=== PATIENT | male | born 1970 | race American Indian/Alaskan Native ===

== ENCOUNTER 2019-12-20 20:03 | Emergency (ER) | payer SELFPAY ==
[2019-12-20 20:41] VITALS: BP 122/88
--- NOTE | 2019-12-20 21:32 | XRay Report ---
LUMBAR SPINE 3 VIEWS INDICATION / CLINICAL INFORMATION: lower back pain COMPARISON: None available. FINDINGS: BONES / JOINT(S): No acute fracture or subluxation. Mild degenerative disc disease scattered diffusel y. SOFT TISSUES: No significant abnormality. ADDITIONAL FINDINGS: None. Signer Name: Paco Alonzo MD Signed: 12/20/2019 9:27 PM Workstation Name: [id number]
[2019-12-20] MEDS ORDERED: IBUPROFEN 600 MG TAB PO ONE (22:21)
[2019-12-20] MEDS ORDERED: HYDROcodone/ACETAMINOPHEN 7.5-325MG TAB PO ONE (22:21)
[2019-12-20] MEDS ORDERED: ONDANSETRON 4 MG ODT TAB PO ONE (22:21)
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
== END 2019-12-20 23:14 | disposition home or self-care (01) ==
LOC: ED 20:03
DX: M62.830 Muscle spasm of back (principal); V89.2XXA Person injured in unspecified motor-vehicle accident, traffic, initial encounter; Y93.89 Activity, other specified; Y92.410 Unspecified street and highway as the place of occurrence of the external cause; Y99.8 Other external cause status
CPT/HCPCS: 72100; 99283; Q0162

== ENCOUNTER 2021-10-01 22:27 | Inpatient (IN) | payer SELFPAY ==
[2021-10-01] MEDS ORDERED: levETIRAcetam 1000 MG/NS 0.75% 1,000 MG/100 ML BAG IV ONE (22:54)
[2021-10-01] MEDS ORDERED: SODIUM CHLORIDE 0.9% 1000 ML 1,000 ML IV ONE (22:54)
[2021-10-01] MEDS ORDERED: LORazepam 2 MG/ML VIAL ONE (23:09)
[2021-10-01] MEDS ORDERED: LORazepam 2 MG/ML VIAL IV ONE ×2 (23:14→23:47)
[2021-10-01 23:24] LABS: Mean Corpuscular HGB Conc 31 % (32-34); Mean Corpuscular Volume 104 fl (84-94); Platelet Count 243 K/mm3 (140-440); Red Blood Count 5.28 M/mm3 (3.65-5.03); Red Cell Distribution Width 13.6 % (13.2-15.2)
[2021-10-01 23:40] LABS: Hematocrit 55.1 % (35.5-45.6); Hemoglobin 16.9 gm/dl (11.8-15.2)
[2021-10-01] MEDS ORDERED: MIDAZOLAM 2 MG/2 ML INJ IV PRN (23:45)
[2021-10-01] MEDS ORDERED: MIDAZOLAM/NS Drip 100mg/100ml 100 MG/100 ML BAG IV SCH (23:45)
[2021-10-01 23:49] LABS: Bilirubin,Urine NEG (Negative); Blood,Urine MOD (Negative); Color,Urine Straw (Yellow); Urobilinogen,Urine < 2.0 mg/dL (<2.0)
[2021-10-01 23:52] LABS: Albumin 5.2 g/dL (3.9-5); Calcium 10.7 mg/dL (8.4-10.2)
[2021-10-01 23:57] LABS: Amphetamine Screen,Urine PRESUMPTIVE NEGATIVE; Benzodiazepines Screen,Urine PRESUMPTIVE NEGATIVE; Cannabinoid Screen,Urine PRESUMPTIVE NEGATIVE; Cocaine Screen,Urine PRESUMPTIVE NEGATIVE; Methadone Screen,Urine PRESUMPTIVE NEGATIVE; Opiate Screen,Urine PRESUMPTIVE NEGATIVE
[2021-10-02] MEDS ORDERED: SODIUM CHLORIDE 0.9% 1000 ML 1,000 ML IV ONE ×2 (00:28→03:38)
[2021-10-02 00:45] LABS: ABG HCO3 13.3 mmol/L (20.0-26.0); ABG Methemoglobin 0.7 % (0.0-1.5); ABG PCO2 39.5 mm Hg; ABG PO2 93.5 mm Hg (80.0-90.0)
[2021-10-02 00:51] LABS: ABG PH 7.145 pH Units (7.350-7.450)
--- NOTE | 2021-10-02 00:51 | XRay Report ---
CHEST 1 VIEW 10/01/2021 11:00 PM INDICATION / CLINICAL INFORMATION: Dyspnea. COMPARISON: None available. FINDINGS: SUPPORT DEVICES: None. HEART / MEDIASTINUM: No significant abnormality. LUNGS / PLEURA: No significant pulmonary abnormality. No significant pleural effusion. No pneumothora x. ADDITIONAL FINDINGS: No significant additional findings. IMPRESSION: 1. No acute abnormality of the chest. Signer Name: Dewey Boyle MD Signed: 10/02/2021 12:46 AM Workstation Name: [id number]
--- NOTE | 2021-10-02 00:55 | Cat Scan Report ---
CT HEAD WITHOUT CONTRAST INDICATION / CLINICAL INFORMATION: Seizure. TECHNIQUE: All CT scans at this location are performed using CT dose reduction for ALARA by means of automated exposure control. COMPARISON: None available. FINDINGS: BRAIN PARENCHYMA: No acute intracranial hemorrhage. No evidence of recent infarct. No mass effect or midline shift. There is greater than expected generalized atrophy for a patient of this age. VENTRICULAR SYSTEM/EXTRA-AXIAL SPACES: Ventricles are normal for age. No extra-axial fluid collection . ORBITS: Normal as visualized. SKELETAL SYSTEM/SOFT TISSUES: Normal bones and soft tissues. PARANASAL SINUSES/MASTOID AIR CELLS: No significant abnormality. ADDITIONAL FINDINGS: None. IMPRESSION: 1. No acute intracranial abnormality. Signer Name: Dewey Boyle MD Signed: 10/02/2021 12:51 AM Workstation Name: [id number]
[2021-10-02] MEDS ORDERED: INSULIN REGULAR, HUMAN 100 UNITS in SODIUM CHLORIDE 0.9% 99 ML IV SCH ×2 (01:00→03:00)
[2021-10-02 01:04] LABS: Calcium 9.4 mg/dL (8.4-10.2)
[2021-10-02 01:23] LABS: Anisocytosis RARE; Total Cells Counted 100
--- NOTE | 2021-10-02 01:32 | Emergency Department Report ---
ED Altered Mental Status HPI - General Chief Complaint: Seizure Stated Complaint: SEIZURE PUI?: No Time Seen by Provider: 10/01/21 22:54 Source: family, EMS Mode of arrival: Stretcher Limitations: No Limitations - History of Present Illness Initial Comments: 51 years old with DM non compliant lately brought in be AMS for seizure new onset at home, had 3 more seizure while on the way here given versed arrived her posst ictal with repose to painful stimuli no falls no head injury Had seizure at home witnessed by family. Had 3 seizures witnessed by EMS and given Ativan 2mg IV. Seizure noted upon arrival to ED. - Related Data Previous Rx's Medication Instructions Recorded Last Taken Type Ibuprofen [Motrin] 800 mg PO Q8HR PRN #30 tablet 12/20/19 Unknown Rx methOCARBAMOL [Robaxin TAB] 750 mg PO Q8H PRN #24 tablet 12/20/19 Unknown Rx Allergies Allergy/AdvReac Type Severity Reaction Status Date / Time No Known Allergies Allergy Verified 10/01/21 23:13 ED Review of Systems ROS: Stated complaint: SEIZURE Other details as noted in HPI Comment: Unobtainable due to pts medical conditions ED Past Medical Hx - Past Medical History Previous Medical History?: Yes Hx Diabetes: Yes - Surgical History Past Surgical History?: No - Social History Smoking Status: Unknown if ever smoked - Medications Home Medications: Home Medications Medication Instructions Recorded Confirmed Last Taken Type Ibuprofen [Motrin] 800 mg PO Q8HR PRN #30 tablet 12/20/19 Unknown Rx methOCARBAMOL [Robaxin TAB] 750 mg PO Q8H PRN #24 tablet 12/20/19 Unknown Rx ED Physical Exam - General Limitations: No Limitations General appearance: lethargic - Head Head exam: Present: atraumatic, normocephalic - Eye Eye exam: Present: normal appearance - ENT ENT exam: Present: mucous membranes moist - Neck Neck exam: Present: normal inspection - Respiratory Respiratory exam: Present: normal lung sounds bilaterally. Absent: respiratory distress - Cardiovascular Cardiovascular Exam: Present: regular rate, tachycardia. Absent: systolic murmur, diastolic murmur, rubs, gallop - GI/Abdominal GI/Abdominal exam: Present: soft, normal bowel sounds - Rectal Rectal exam: Present: deferred - Extremities Exam Extremities exam: Present: normal inspection - Back Exam Back exam: Present: normal inspection - Expanded Neurological Exam Expanded Neurological exam: Present: innattentive Best Eye Response (Svitlana): (2) open to pain Best Motor Response (Orange): (5) localizes to pain Best Verbal Response (Orange): (1) no verbal response Svitlana Total: 8 - Skin Skin exam: Present: warm, dry, intact, normal color. Absent: rash ED Course Vital Signs 10/01/21 22:48 Temperature 98 F Pulse Rate 106 H Respiratory 18 Rate Blood Pressure 158/91 O2 Sat by Pulse 100 Oximetry - Lab Data Result diagrams: 10/01/21 23:10 10/02/21 00:28 Lab Results 10/01/21 10/01/21 10/01/21 Range/Units 23:10 23:10 23:10 WBC 13.3 H (4.5-11.0) K/mm3 RBC 5.28 H (3.65-5.03) M/mm3 Hgb 16.9 H (11.8-15.2) gm/dl Hct 55.1 H (35.5-45.6) % MCV 104 H (84-94) fl MCH 32 (28-32) pg MCHC 31 L (32-34) % RDW 13.6 (13.2-15.2) % Plt Count 243 (140-440) K/mm3 Lymph # (Auto) Customer Services Coordinator Add Manual Diff Complete Total Counted 100 Seg Neuts % (Manual) 49.0 (40.0-70.0) % Band Neutrophils % 0 % Lymphocytes % (Manual) 39.0 H (13.4-35.0) % Reactive Lymphs % (Man) 0 % Monocytes % (Manual) 9.0 H (0.0-7.3) % Eosinophils % (Manual) 2.0 (0.0-4.3) % Basophils % (Manual) 1.0 (0.0-1.8) % Metamyelocytes % 0 % Myelocytes % 0 % Promyelocytes % 0 % Blast Cells % 0 % Nucleated RBC % Not Reportable Seg Neutrophils # Man 6.5 (1.8-7.7) K/mm3 Band Neutrophils # 0.0 K/mm3 Lymphocytes # (Manual) 5.2 (1.2-5.4) K/mm3 Abs React Lymphs (Man) 0.0 K/mm3 Monocytes # (Manual) 1.2 H (0.0-0.8) K/mm3 Eosinophils # (Manual) 0.3 (0.0-0.4) K/mm3 Basophils # (Manual) 0.1 (0.0-0.1) K/mm3 Metamyelocytes # 0.0 K/mm3 Myelocytes # 0.0 K/mm3 Promyelocytes # 0.0 K/mm3 Blast Cells # 0.0 K/mm3 WBC Morphology Not Reportable Hypersegmented Neuts Not Reportable Hyposegmented Neuts Not Reportable Hypogranular Neuts Not Reportable Smudge Cells Not Reportable Toxic Granulation Not Reportable Toxic Vacuolation Not Reportable Dohle Bodies Not Reportable Pelger-Huet Anomaly Not Reportable Elly Rods Not Reportable Platelet Estimate Not Reportable Clumped Platelets Not Reportable Plt Clumps, EDTA Not Reportable Large Platelets Not Reportable Giant Platelets Not Reportable Platelet Satelliting Not Reportable Plt Morphology Comment Not Reportable RBC Morphology Not Reportable Dimorphic RBCs Not Reportable Polychromasia Not Reportable Hypochromasia Not Reportable Poikilocytosis Not Reportable Anisocytosis Rare Microcytosis Rare Macrocytosis Not Reportable Spherocytes Not Reportable Pappenheimer Bodies Not Reportable Sickle Cells Not Reportable Target Cells Not Reportable Tear Drop Cells Not Reportable Ovalocytes Not Reportable Helmet Cells Not Reportable [place] Bodies Not Reportable Albia Rings Not Reportable [place] Cells Not Reportable Bite Cells Not Reportable Crenated Cell Not Reportable Elliptocytes Not Reportable Acanthocytes (Spur) Not Reportable Rouleaux Not Reportable Hemoglobin C Crystals Not Reportable Schistocytes Not Reportable Malaria parasites Not Reportable Sanjiv Bodies Not Reportable Hem Pathologist Commnt No ABG pH (7.350-7.450) pH Units ABG pCO2 mm Hg ABG pO2 (80.0-90.0) mm Hg ABG HCO3 (20.0-26.0) mmol/L ABG O2 Saturation (95.0-99.0) % ABG O2 Content (0.0-44) ABG Base Excess (-2.0-3.0) mmol/L ABG Hemoglobin (14.0-18.0) gm/dl ABG Carboxyhemoglobin (0.0-5.0) % ABG Methemoglobin (0.0-1.5) % Oxyhemoglobin (95.0-99.0) % FiO2 % Sodium 140 (137-145) mmol/L Potassium 3.6 (3.6-5.0) mmol/L Chloride 90.1 L (98-107) mmol/L Carbon Dioxide 8 L* (22-30) mmol/L Anion Gap 46 mmol/L BUN 17 (9-20) mg/dL Creatinine 1.6 H (0.8-1.3) mg/dL Estimated GFR 56 ml/min BUN/Creatinine Ratio 11 % Glucose 608 H* (75-100) mg/dL POC Glucose (70-105) mg/dL Calcium 10.7 H (8.4-10.2) mg/dL Phosphorus (2.5-4.5) mg/dL Magnesium (1.7-2.3) mg/dL Total Bilirubin 0.30 (0.1-1.2) mg/dL AST 21 (5-40) units/L ALT 18 (7-56) units/L Alkaline Phosphatase 84 (35-129) units/L Total Creatine Kinase 234 H (55-170) units/L NT-Pro-B Natriuret Pep 15.66 (0-450) pg/mL Total Protein 9.1 H (6.3-8.2) g/dL Albumin 5.2 H (3.9-5) g/dL Albumin/Globulin Ratio 1.3 % Urine Color (Yellow) Urine Turbidity (Clear) Urine pH (5.0-7.0) Ur Specific [place] (1.003-1.030) Urine Protein (Negative) mg/dL Urine Glucose (UA) (Negative) mg/dL Urine Ketones (Negative) mg/dL Urine Blood (Negative) Urine Nitrite (Negative) Urine Bilirubin (Negative) Urine Urobilinogen (<2.0) mg/dL Ur Leukocyte Esterase (Negative) Urine WBC (Auto) (0.0-6.0) /HPF Urine RBC (Auto) (0.0-6.0) /HPF Urine Opiates Screen Urine Methadone Screen Ur Barbiturates Screen Ur Phencyclidine Scrn Ur Amphetamines Screen U Benzodiazepines Scrn Urine Cocaine Screen U Marijuana (THC) Screen Drugs of Abuse Note Plasma/Serum Alcohol (0-0.07) % 10/01/21 10/01/21 10/01/21 Range/Units 23:10 23:34 23:34 WBC (4.5-11.0) K/mm3 RBC (3.65-5.03) M/mm3 Hgb (11.8-15.2) gm/dl Hct (35.5-45.6) % MCV (84-94) fl MCH (28-32) pg MCHC (32-34) % RDW (13.2-15.2) % Plt Count (140-440) K/mm3 Lymph # (Auto) Add Manual Diff Total Counted Seg Neuts % (Manual) (40.0-70.0) % Band Neutrophils % % Lymphocytes % (Manual) (13.4-35.0) % Reactive Lymphs % (Man) % Monocytes % (Manual) (0.0-7.3) % Eosinophils % (Manual) (0.0-4.3) % Basophils % (Manual) (0.0-1.8) % Metamyelocytes % % Myelocytes % % Promyelocytes % % Blast Cells % % Nucleated RBC % Seg Neutrophils # Man (1.8-7.7) K/mm3 Band Neutrophils # K/mm3 Lymphocytes # (Manual) (1.2-5.4) K/mm3 Abs React Lymphs (Man) K/mm3 Monocytes # (Manual) (0.0-0.8) K/mm3 Eosinophils # (Manual) (0.0-0.4) K/mm3 Basophils # (Manual) (0.0-0.1) K/mm3 Metamyelocytes # K/mm3 Myelocytes # K/mm3 Promyelocytes # K/mm3 Blast Cells # K/mm3 WBC Morphology Hypersegmented Neuts Hyposegmented Neuts Hypogranular Neuts Smudge Cells Toxic Granulation Toxic Vacuolation Dohle Bodies Pelger-Huet Anomaly Elly Rods Platelet Estimate Clumped Platelets Plt Clumps, EDTA Large Platelets Giant Platelets Platelet Satelliting Plt Morphology Comment RBC Morphology Dimorphic RBCs Polychromasia Hypochromasia Poikilocytosis Anisocytosis Microcytosis Macrocytosis Spherocytes Pappenheimer Bodies Sickle Cells Target Cells Tear Drop Cells Ovalocytes Helmet Cells [place] Bodies Albia Rings [place] Cells Bite Cells Crenated Cell Elliptocytes Acanthocytes (Spur) Rouleaux Hemoglobin C Crystals Schistocytes Malaria parasites Sanjiv Bodies Hem Pathologist Commnt ABG pH (7.350-7.450) pH Units ABG pCO2 mm Hg ABG pO2 (80.0-90.0) mm Hg ABG HCO3 (20.0-26.0) mmol/L ABG O2 Saturation (95.0-99.0) % ABG O2 Content (0.0-44) ABG Base Excess (-2.0-3.0) mmol/L ABG Hemoglobin (14.0-18.0) gm/dl ABG Carboxyhemoglobin (0.0-5.0) % ABG Methemoglobin (0.0-1.5) % Oxyhemoglobin (95.0-99.0) % FiO2 % Sodium (137-145) mmol/L Potassium (3.6-5.0) mmol/L Chloride (98-107) mmol/L Carbon Dioxide (22-30) mmol/L Anion Gap mmol/L BUN (9-20) mg/dL Creatinine (0.8-1.3) mg/dL Estimated GFR ml/min BUN/Creatinine Ratio % Glucose (75-100) mg/dL POC Glucose (70-105) mg/dL Calcium (8.4-10.2) mg/dL Phosphorus (2.5-4.5) mg/dL Magnesium (1.7-2.3) mg/dL Total Bilirubin (0.1-1.2) mg/dL AST (5-40) units/L ALT (7-56) units/L Alkaline Phosphatase (35-129) units/L Total Creatine Kinase (55-170) units/L NT-Pro-B Natriuret Pep (0-450) pg/mL Total Protein (6.3-8.2) g/dL Albumin (3.9-5) g/dL Albumin/Globulin Ratio % Urine Color Straw (Yellow) Urine Turbidity Clear (Clear) Urine pH 5.0 (5.0-7.0) Ur Specific [place] 1.016 (1.003-1.030) Urine Protein 100 mg/dl (Negative) mg/dL Urine Glucose (UA) >=500 (Negative) mg/dL Urine Ketones Neg (Negative) mg/dL Urine Blood Mod (Negative) Urine Nitrite Neg (Negative) Urine Bilirubin Neg (Negative) Urine Urobilinogen < 2.0 (<2.0) mg/dL Ur Leukocyte Esterase Neg (Negative) Urine WBC (Auto) 4.0 (0.0-6.0) /HPF Urine RBC (Auto) 1.0 (0.0-6.0) /HPF Urine Opiates Screen Presumptive negative Urine Methadone Screen Presumptive negative Ur Barbiturates Screen Presumptive negative Ur Phencyclidine Scrn Presumptive negative Ur Amphetamines Screen Presumptive negative U Benzodiazepines Scrn Presumptive negative Urine Cocaine Screen Presumptive negative U Marijuana (THC) Screen Presumptive negative Drugs of Abuse Note Disclamer Plasma/Serum Alcohol < 0.01 (0-0.07) % 10/02/21 10/02/21 10/02/21 Range/Units 00:28 00:28 00:30 WBC (4.5-11.0) K/mm3 RBC (3.65-5.03) M/mm3 Hgb (11.8-15.2) gm/dl Hct (35.5-45.6) % MCV (84-94) fl MCH (28-32) pg MCHC (32-34) % RDW (13.2-15.2) % Plt Count (140-440) K/mm3 Lymph # (Auto) Add Manual Diff Total Counted Seg Neuts % (Manual) (40.0-70.0) % Band Neutrophils % % Lymphocytes % (Manual) (13.4-35.0) % Reactive Lymphs % (Man) % Monocytes % (Manual) (0.0-7.3) % Eosinophils % (Manual) (0.0-4.3) % Basophils % (Manual) (0.0-1.8) % Metamyelocytes % % Myelocytes % % Promyelocytes % % Blast Cells % % Nucleated RBC % Seg Neutrophils # Man (1.8-7.7) K/mm3 Band Neutrophils # K/mm3 Lymphocytes # (Manual) (1.2-5.4) K/mm3 Abs React Lymphs (Man) K/mm3 Monocytes # (Manual) (0.0-0.8) K/mm3 Eosinophils # (Manual) (0.0-0.4) K/mm3 Basophils # (Manual) (0.0-0.1) K/mm3 Metamyelocytes # K/mm3 Myelocytes # K/mm3 Promyelocytes # K/mm3 Blast Cells # K/mm3 WBC Morphology Hypersegmented Neuts Hyposegmented Neuts Hypogranular Neuts Smudge Cells Toxic Granulation Toxic Vacuolation Dohle Bodies Pelger-Huet Anomaly Elly Rods Platelet Estimate Clumped Platelets Plt Clumps, EDTA Large Platelets Giant Platelets Platelet Satelliting Plt Morphology Comment RBC Morphology Dimorphic RBCs Polychromasia Hypochromasia Poikilocytosis Anisocytosis Microcytosis Macrocytosis Spherocytes Pappenheimer Bodies Sickle Cells Target Cells Tear Drop Cells Ovalocytes Helmet Cells [place] Bodies Albia Rings Mary Cells Bite Cells Crenated Cell Elliptocytes Acanthocytes (Spur) Rouleaux Hemoglobin C Crystals Schistocytes Malaria parasites Sanjiv Bodies Hem Pathologist Commnt ABG pH 7.145 L* (7.350-7.450) pH Units ABG pCO2 39.5 mm Hg ABG pO2 93.5 H (80.0-90.0) mm Hg ABG HCO3 13.3 L (20.0-26.0) mmol/L ABG O2 Saturation 95.0 (95.0-99.0) % ABG O2 Content 21.9 (0.0-44) ABG Base Excess -15.0 L (-2.0-3.0) mmol/L ABG Hemoglobin 16.7 (14.0-18.0) gm/dl ABG Carboxyhemoglobin 1.3 (0.0-5.0) % ABG Methemoglobin 0.7 (0.0-1.5) % Oxyhemoglobin 93.0 L (95.0-99.0) % FiO2 40 % Sodium 135 L (137-145) mmol/L Potassium 5.2 H D (3.6-5.0) mmol/L Chloride 92.2 L (98-107) mmol/L Carbon Dioxide 13 L (22-30) mmol/L Anion Gap 35 mmol/L BUN 16 (9-20) mg/dL Creatinine 1.6 H (0.8-1.3) mg/dL Estimated GFR 56 ml/min BUN/Creatinine Ratio 10 % Glucose 529 H* (75-100) mg/dL POC Glucose (70-105) mg/dL Calcium 9.4 (8.4-10.2) mg/dL Phosphorus 6.00 H (2.5-4.5) mg/dL Magnesium 2.70 H (1.7-2.3) mg/dL Total Bilirubin (0.1-1.2) mg/dL AST (5-40) units/L ALT (7-56) units/L Alkaline Phosphatase (35-129) units/L Total Creatine Kinase (55-170) units/L NT-Pro-B Natriuret Pep (0-450) pg/mL Total Protein (6.3-8.2) g/dL Albumin (3.9-5) g/dL Albumin/Globulin Ratio % Urine Color (Yellow) Urine Turbidity (Clear) Urine pH (5.0-7.0) Ur Specific [place] (1.003-1.030) Urine Protein (Negative) mg/dL Urine Glucose (UA) (Negative) mg/dL Urine Ketones (Negative) mg/dL Urine Blood (Negative) Urine Nitrite (Negative) Urine Bilirubin (Negative) Urine Urobilinogen (<2.0) mg/dL Ur Leukocyte Esterase (Negative) Urine WBC (Auto) (0.0-6.0) /HPF Urine RBC (Auto) (0.0-6.0) /HPF Urine Opiates Screen Urine Methadone Screen Ur Barbiturates Screen Ur Phencyclidine Scrn Ur Amphetamines Screen U Benzodiazepines Scrn Urine Cocaine Screen U Marijuana (THC) Screen Drugs of Abuse Note Plasma/Serum Alcohol (0-0.07) % 10/02/21 Range/Units 00:40 WBC (4.5-11.0) K/mm3 RBC (3.65-5.03) M/mm3 Hgb (11.8-15.2) gm/dl Hct (35.5-45.6) % MCV (84-94) fl MCH (28-32) pg MCHC (32-34) % RDW (13.2-15.2) % Plt Count (140-440) K/mm3 Lymph # (Auto) Add Manual Diff Total Counted Seg Neuts % (Manual) (40.0-70.0) % Band Neutrophils % % Lymphocytes % (Manual) (13.4-35.0) % Reactive Lymphs % (Man) % Monocytes % (Manual) (0.0-7.3) % Eosinophils % (Manual) (0.0-4.3) % Basophils % (Manual) (0.0-1.8) % Metamyelocytes % % Myelocytes % % Promyelocytes % % Blast Cells % % Nucleated RBC % Seg Neutrophils # Man (1.8-7.7) K/mm3 Band Neutrophils # K/mm3 Lymphocytes # (Manual) (1.2-5.4) K/mm3 Abs React Lymphs (Man) K/mm3 Monocytes # (Manual) (0.0-0.8) K/mm3 Eosinophils # (Manual) (0.0-0.4) K/mm3 Basophils # (Manual) (0.0-0.1) K/mm3 Metamyelocytes # K/mm3 Myelocytes # K/mm3 Promyelocytes # K/mm3 Blast Cells # K/mm3 WBC Morphology Hypersegmented Neuts Hyposegmented Neuts Hypogranular Neuts Smudge Cells Toxic Granulation Toxic Vacuolation Dohle Bodies Pelger-Huet Anomaly Elly Rods Platelet Estimate Clumped Platelets Plt Clumps, EDTA Large Platelets Giant Platelets Platelet Satelliting Plt Morphology Comment RBC Morphology Dimorphic RBCs Polychromasia Hypochromasia Poikilocytosis Anisocytosis Microcytosis Macrocytosis Spherocytes Pappenheimer Bodies Sickle Cells Target Cells Tear Drop Cells Ovalocytes Helmet Cells [place] Bodies Albia Rings Mary Cells Bite Cells Crenated Cell Elliptocytes Acanthocytes (Spur) Rouleaux Hemoglobin C Crystals Schistocytes Malaria parasites Sanjiv Bodies Hem Pathologist Commnt ABG pH (7.350-7.450) pH Units ABG pCO2 mm Hg ABG pO2 (80.0-90.0) mm Hg ABG HCO3 (20.0-26.0) mmol/L ABG O2 Saturation (95.0-99.0) % ABG O2 Content (0.0-44) ABG Base Excess (-2.0-3.0) mmol/L ABG Hemoglobin (14.0-18.0) gm/dl ABG Carboxyhemoglobin (0.0-5.0) % ABG Methemoglobin (0.0-1.5) % Oxyhemoglobin (95.0-99.0) % FiO2 % Sodium (137-145) mmol/L Potassium (3.6-5.0) mmol/L Chloride (98-107) mmol/L Carbon Dioxide (22-30) mmol/L Anion Gap mmol/L BUN (9-20) mg/dL Creatinine (0.8-1.3) mg/dL Estimated GFR ml/min BUN/Creatinine Ratio % Glucose (75-100) mg/dL POC Glucose 495 H (70-105) mg/dL Calcium (8.4-10.2) mg/dL Phosphorus (2.5-4.5) mg/dL Magnesium (1.7-2.3) mg/dL Total Bilirubin (0.1-1.2) mg/dL AST (5-40) units/L ALT (7-56) units/L Alkaline Phosphatase (35-129) units/L Total Creatine Kinase (55-170) units/L NT-Pro-B Natriuret Pep (0-450) pg/mL Total Protein (6.3-8.2) g/dL Albumin (3.9-5) g/dL Albumin/Globulin Ratio % Urine Color (Yellow) Urine Turbidity (Clear) Urine pH (5.0-7.0) Ur Specific [place] (1.003-1.030) Urine Protein (Negative) mg/dL Urine Glucose (UA) (Negative) mg/dL Urine Ketones (Negative) mg/dL Urine Blood (Negative) Urine Nitrite (Negative) Urine Bilirubin (Negative) Urine Urobilinogen (<2.0) mg/dL Ur Leukocyte Esterase (Negative) Urine WBC (Auto) (0.0-6.0) /HPF Urine RBC (Auto) (0.0-6.0) /HPF Urine Opiates Screen Urine Methadone Screen Ur Barbiturates Screen Ur Phencyclidine Scrn Ur Amphetamines Screen U Benzodiazepines Scrn Urine Cocaine Screen U Marijuana (THC) Screen Drugs of Abuse Note Plasma/Serum Alcohol (0-0.07) % - EKG Data -: EKG Interpreted by Me EKG shows normal: sinus rhythm Rate: tachycardia Interpretation: other (LAE) - Radiology Data Radiology results: report reviewed, image reviewed - Medical Decision Making work up showed : - Status epi : started on keppra on versed drip ativan given - DKA: fluids and insulin bolus and drip -AMS : seems secondary to acidosis , head CT neg , Critical care attestation.: If time is entered above; I have spent that time in minutes in the direct care of this critically ill patient, excluding procedure time. ED Disposition Clinical Impression: DKA (diabetic ketoacidosis), Altered mental status, Status epilepticus, Acidosis, Hyperglycemia Disposition: ADMITTED INPATIENT Is pt being admited?: Yes Does the pt Need Aspirin: No Condition: Critical Instructions: Diabetic Ketoacidosis (ED) Referrals: MARTINA RUSH MD [Primary Care Provider] - 3-5 Days
[2021-10-02 02:43] LABS: BUN/Creatinine Ratio 12; Blood Urea Nitrogen 15 mg/dL (9-20); Calcium 9.1 mg/dL (8.4-10.2); Hemolysis Index 135
[2021-10-02] MEDS ORDERED: MORPHINE 2 MG/1 ML INJ IV PRN (03:00)
[2021-10-02] MEDS ORDERED: ALBUTEROL 2.5 MG/3 ML NEBU IH PRN (03:00)
[2021-10-02] MEDS ORDERED: ONDANSETRON 4 MG/2 ML INJ IV PRN (03:00)
[2021-10-02] MEDS ORDERED: MORPHINE 4 MG/1 ML INJ IV PRN (03:00)
[2021-10-02] MEDS ORDERED: ACETAMINOPHEN 325 MG TAB PO PRN (03:00)
[2021-10-02] MEDS ORDERED: SODIUM CHLORIDE 0.45% 1000 ML 1,000 ML IV SCH (03:00)
[2021-10-02] MEDS ORDERED: DEXTROSE 50% IN WATER (25GM) 50 ML SYRINGE IV PRN (03:00)
--- NOTE | 2021-10-02 03:09 | History and Physical Report ---
History of Present Illness Date of examination: 10/02/21 Date of admission: 10/02/21 Chief complaint: Seizure History of present illness: 51 years male with past medical history of diabetes was brought to the emergency room because of altered mental status and seizure at home. Patient had seizure at home witnessed by family. Patient had 3 seizures witnessed by EMS and given Ativan 2mg IV. Seizure noted upon arrival to ED. Patient arrived her posst ictal with repose to painful stimuli no falls no head injury . Initial CT scan of the head shows no acute intracranial abnormality. But patient found to have DKA. Patient blood glucose is 608, bicarb is 8 anion gap is 46. We are going to admit the patient to the ICU put the patient on insulin drip IV fluid Keppra will consult critical care as well as neurology for evaluation Past History Past Medical History: diabetes, seizures Past Surgical History: No surgical history Social history: other (Unknown) Family history: diabetes Medications and Allergies Allergies Allergy/AdvReac Type Severity Reaction Status Date / Time No Known Allergies Allergy Verified 10/01/21 23:13 Home Medications Medication Instructions Recorded Confirmed Last Taken Type Ibuprofen [Motrin] 800 mg PO Q8HR PRN #30 tablet 12/20/19 Unknown Rx methOCARBAMOL [Robaxin TAB] 750 mg PO Q8H PRN #24 tablet 12/20/19 Unknown Rx Active Meds: Active Medications MIDAZOLAM/NS Drip 100mg/100ml (Midazolam/Ns Drip 100mg/100ml) 100 mg in 100 mls @ 1 mls/hr IV TITR BAYLEE; Protocol Insulin Human Regular 100 (units/ Sodium Chloride) 100 mls @ 1 mls/hr IV TITR BAYLEE; Protocol Last Titration: 10/02/21 03:00 Dose: 4 units/hr, 4 mls/hr Midazolam HCl (Midazolam 2 Mg/2 Ml Inj) 2 mg IV Q10MIN PRN PRN Reason: Sedation Review of Systems All systems: negative Constitutional: fatigue, lethargy (Seizure), other Exam - Constitutional Vitals: Temp Pulse Resp BP Pulse Ox 98 F 106 H 18 158/91 100 10/01/21 22:48 10/01/21 22:48 10/01/21 22:48 10/01/21 22:48 10/01/21 22:48 General appearance: Present: no acute distress, well-nourished - EENT Eyes: Present: PERRL ENT: hearing intact, clear oral mucosa - Neck Neck: Present: supple, normal ROM - Respiratory Respiratory effort: normal Respiratory: bilateral: diminished - Cardiovascular Heart Sounds: Present: S1 & S2. Absent: rub, click - Extremities Extremities: pulses symmetrical, No edema Peripheral Pulses: within normal limits - Abdominal General gastrointestinal: Present: soft, non-tender, non-distended, normal bowel sounds Male genitourinary: Present: normal - Integumentary Integumentary: Present: clear, warm, dry - Musculoskeletal Musculoskeletal: gait normal, strength equal bilaterally - Neurologic Neurologic: CNII-XII intact, moves all extremities Results - Labs CBC & Chem 7: 10/01/21 23:10 10/02/21 00:28 Labs: Laboratory Last Values WBC 13.3 K/mm3 (4.5-11.0) H 10/01/21 23:10 RBC 5.28 M/mm3 (3.65-5.03) H 10/01/21 23:10 Hgb 16.9 gm/dl (11.8-15.2) H 10/01/21 23:10 Hct 55.1 % (35.5-45.6) H 10/01/21 23:10 MCV 104 fl (84-94) H 10/01/21 23:10 MCH 32 pg (28-32) 10/01/21 23:10 MCHC 31 % (32-34) L 10/01/21 23:10 RDW 13.6 % (13.2-15.2) 10/01/21 23:10 Plt Count 243 K/mm3 (140-440) 10/01/21 23:10 Lymph # (Auto) Telegraph Service Clerk 10/01/21 23:10 Add Manual Diff Complete 10/01/21 23:10 Total Counted 100 10/01/21 23:10 Seg Neuts % (Manual) 49.0 % (40.0-70.0) 10/01/21 23:10 Band Neutrophils % 0 % 10/01/21 23:10 Lymphocytes % (Manual) 39.0 % (13.4-35.0) H 10/01/21 23:10 Reactive Lymphs % (Man) 0 % 10/01/21 23:10 Monocytes % (Manual) 9.0 % (0.0-7.3) H 10/01/21 23:10 Eosinophils % (Manual) 2.0 % (0.0-4.3) 10/01/21 23:10 Basophils % (Manual) 1.0 % (0.0-1.8) 10/01/21 23:10 Metamyelocytes % 0 % 10/01/21 23:10 Myelocytes % 0 % 10/01/21 23:10 Promyelocytes % 0 % 10/01/21 23:10 Blast Cells % 0 % 10/01/21 23:10 Nucleated RBC % Not Reportable 10/01/21 23:10 Seg Neutrophils # Man 6.5 K/mm3 (1.8-7.7) 10/01/21 23:10 Band Neutrophils # 0.0 K/mm3 10/01/21 23:10 Lymphocytes # (Manual) 5.2 K/mm3 (1.2-5.4) 10/01/21 23:10 Abs React Lymphs (Man) 0.0 K/mm3 10/01/21 23:10 Monocytes # (Manual) 1.2 K/mm3 (0.0-0.8) H 10/01/21 23:10 Eosinophils # (Manual) 0.3 K/mm3 (0.0-0.4) 10/01/21 23:10 Basophils # (Manual) 0.1 K/mm3 (0.0-0.1) 10/01/21 23:10 Metamyelocytes # 0.0 K/mm3 10/01/21 23:10 Myelocytes # 0.0 K/mm3 10/01/21 23:10 Promyelocytes # 0.0 K/mm3 10/01/21 23:10 Blast Cells # 0.0 K/mm3 10/01/21 23:10 WBC Morphology Not Reportable 10/01/21 23:10 Hypersegmented Neuts Not Reportable 10/01/21 23:10 Hyposegmented Neuts Not Reportable 10/01/21 23:10 Hypogranular Neuts Not Reportable 10/01/21 23:10 Smudge Cells Not Reportable 10/01/21 23:10 Toxic Granulation Not Reportable 10/01/21 23:10 Toxic Vacuolation Not Reportable 10/01/21 23:10 Dohle Bodies Not Reportable 10/01/21 23:10 Pelger-Huet Anomaly Not Reportable 10/01/21 23:10 Elly Rods Not Reportable 10/01/21 23:10 Platelet Estimate Not Reportable 10/01/21 23:10 Clumped Platelets Not Reportable 10/01/21 23:10 Plt Clumps, EDTA Not Reportable 10/01/21 23:10 Large Platelets Not Reportable 10/01/21 23:10 Giant Platelets Not Reportable 10/01/21 23:10 Platelet Satelliting Not Reportable 10/01/21 23:10 Plt Morphology Comment Not Reportable 10/01/21 23:10 RBC Morphology Not Reportable 10/01/21 23:10 Dimorphic RBCs Not Reportable 10/01/21 23:10 Polychromasia Not Reportable 10/01/21 23:10 Hypochromasia Not Reportable 10/01/21 23:10 Poikilocytosis Not Reportable 10/01/21 23:10 Anisocytosis Rare 10/01/21 23:10 Microcytosis Rare 10/01/21 23:10 Macrocytosis Not Reportable 10/01/21 23:10 Spherocytes Not Reportable 10/01/21 23:10 Pappenheimer Bodies Not Reportable 10/01/21 23:10 Sickle Cells Not Reportable 10/01/21 23:10 Target Cells Not Reportable 10/01/21 23:10 Tear Drop Cells Not Reportable 10/01/21 23:10 Ovalocytes Not Reportable 10/01/21 23:10 Helmet Cells Not Reportable 10/01/21 23:10 Rutledge-Zillah Bodies Not Reportable 10/01/21 23:10 Hamlin Rings Not Reportable 10/01/21 23:10 Mary Cells Not Reportable 10/01/21 23:10 Bite Cells Not Reportable 10/01/21 23:10 Crenated Cell Not Reportable 10/01/21 23:10 Elliptocytes Not Reportable 10/01/21 23:10 Acanthocytes (Spur) Not Reportable 10/01/21 23:10 Rouleaux Not Reportable 10/01/21 23:10 Hemoglobin C Crystals Not Reportable 10/01/21 23:10 Schistocytes Not Reportable 10/01/21 23:10 Malaria parasites Not Reportable 10/01/21 23:10 Sanjiv Bodies Not Reportable 10/01/21 23:10 Hem Pathologist Commnt No 10/01/21 23:10 ABG pH 7.145 pH Units (7.350-7.450) L* 10/02/21 00:30 ABG pCO2 39.5 mm Hg 10/02/21 00:30 ABG pO2 93.5 mm Hg (80.0-90.0) H 10/02/21 00:30 ABG HCO3 13.3 mmol/L (20.0-26.0) L 10/02/21 00:30 ABG O2 Saturation 95.0 % (95.0-99.0) 10/02/21 00:30 ABG O2 Content 21.9 (0.0-44) 10/02/21 00:30 ABG Base Excess -15.0 mmol/L (-2.0-3.0) L 10/02/21 00:30 ABG Hemoglobin 16.7 gm/dl (14.0-18.0) 10/02/21 00:30 ABG Carboxyhemoglobin 1.3 % (0.0-5.0) 10/02/21 00:30 ABG Methemoglobin 0.7 % (0.0-1.5) 10/02/21 00:30 Oxyhemoglobin 93.0 % (95.0-99.0) L 10/02/21 00:30 FiO2 40 % 10/02/21 00:30 Sodium 135 mmol/L (137-145) L 10/02/21 00:28 Potassium 5.2 mmol/L (3.6-5.0) H D 10/02/21 00:28 Chloride 92.2 mmol/L (98-107) L 10/02/21 00:28 Carbon Dioxide 13 mmol/L (22-30) L 10/02/21 00:28 Anion Gap 35 mmol/L 10/02/21 00:28 BUN 16 mg/dL (9-20) 10/02/21 00:28 Creatinine 1.6 mg/dL (0.8-1.3) H 10/02/21 00:28 Estimated GFR > 60 ml/min 10/02/21 02:05 BUN/Creatinine Ratio 12 % 10/02/21 02:05 Glucose 529 mg/dL (75-100) H* 10/02/21 00:28 POC Glucose 495 mg/dL (70-105) H 10/02/21 00:40 Calcium 9.4 mg/dL (8.4-10.2) 10/02/21 00:28 Phosphorus 6.00 mg/dL (2.5-4.5) H 10/02/21 00:28 Magnesium 2.70 mg/dL (1.7-2.3) H 10/02/21 00:28 Total Bilirubin 0.30 mg/dL (0.1-1.2) 10/01/21 23:10 AST 21 units/L (5-40) 10/01/21 23:10 ALT 18 units/L (7-56) 10/01/21 23:10 Alkaline Phosphatase 84 units/L (35-129) 10/01/21 23:10 Total Creatine Kinase 234 units/L (55-170) H 10/01/21 23:10 NT-Pro-B Natriuret Pep 15.66 pg/mL (0-450) 10/01/21 23:10 Total Protein 9.1 g/dL (6.3-8.2) H 10/01/21 23:10 Albumin 5.2 g/dL (3.9-5) H 10/01/21 23:10 Albumin/Globulin Ratio 1.3 % 10/01/21 23:10 Urine Color Straw (Yellow) 10/01/21 23:34 Urine Turbidity Clear (Clear) 10/01/21 23:34 Urine pH 5.0 (5.0-7.0) 10/01/21 23:34 Ur Specific [place] 1.016 (1.003-1.030) 10/01/21 23:34 Urine Protein 100 mg/dl mg/dL (Negative) 10/01/21 23:34 Urine Glucose (UA) >=500 mg/dL (Negative) 10/01/21 23:34 Urine Ketones Neg mg/dL (Negative) 10/01/21 23:34 Urine Blood Mod (Negative) 10/01/21 23:34 Urine Nitrite Neg (Negative) 10/01/21 23:34 Urine Bilirubin Neg (Negative) 10/01/21 23:34 Urine Urobilinogen < 2.0 mg/dL (<2.0) 10/01/21 23:34 Ur Leukocyte Esterase Neg (Negative) 05/20/22 23:34 Urine WBC (Auto) 4.0 /HPF (0.0-6.0) 10/01/21 23:34 Urine RBC (Auto) 1.0 /HPF (0.0-6.0) 10/01/21 23:34 Urine Opiates Screen Presumptive negative 10/01/21 23:34 Urine Methadone Screen Presumptive negative 10/01/21 23:34 Ur Barbiturates Screen Presumptive negative 10/01/21 23:34 Ur Phencyclidine Scrn Presumptive negative 10/01/21 23:34 Ur Amphetamines Screen Presumptive negative 10/01/21 23:34 U Benzodiazepines Scrn Presumptive negative 10/01/21 23:34 Urine Cocaine Screen Presumptive negative 10/01/21 23:34 U Marijuana (THC) Screen Presumptive negative 10/01/21 23:34 Drugs of Abuse Note Disclamer 10/01/21 23:34 Plasma/Serum Alcohol < 0.01 % (0-0.07) 10/01/21 23:10 - Imaging and Cardiology Chest x-ray: report reviewed CT Scan - head: report reviewed Assessment and Plan VTE prophylaxis?: Chemical Plan of care discussed with patient/family: Yes - Patient Problems (1) DKA (diabetic ketoacidosis) Current Visit: Yes Status: Acute Plan to address problem: Admit the patient to the ICU. NPO. Half-normal saline at the rate of 125 cc/h. Insulin drip as per protocol. We do the serial BMP. We also consult critical care evaluation. Recheck BMP in the morning (2) Acute metabolic encephalopathy Current Visit: Yes Status: Acute Plan to address problem: Metabolic encephalopathy secondary to seizure and DKA.NPO. Half-normal saline at the rate of 125 cc/h. Insulin drip as per protocol. We do the serial BMP. We also consult critical care evaluation. Recheck BMP in the morning (3) Acidosis Current Visit: Yes Status: Acute Plan to address problem: Most likely secondary to DKA. Half-normal saline at the rate of 125 cc/h. Insulin drip as per protocol. We do the serial BMP. (4) Hyperglycemia Current Visit: Yes Status: Acute Plan to address problem: NPO. Half-normal saline at the rate of 125 cc/h. Insulin drip as per protocol. We do the serial BMP. We also consult critical care evaluation. Recheck BMP in the morning (5) Status epilepticus Current Visit: Yes Status: Acute Plan to address problem: Keppra 500 mg IV every 12 hours. Patient is on seizure precaution. Ativan as needed. EEG. Neurology evaluation (6) DVT prophylaxis Current Visit: Yes Status: Acute Plan to address problem: Heparin 5000 units subcu every 12 hours for DVT prophylaxis. Pepcid 20 mg IV every 12 hours for GI prophylaxis. Patient is a full code
[2021-10-02 04:38] LABS: BUN/Creatinine Ratio 12; Blood Urea Nitrogen 14 mg/dL (9-20); Calcium 9.2 mg/dL (8.4-10.2); Hemolysis Index 21
[2021-10-02] MEDS: D5W/0.45% NACL/KCL 20 MEQ 20 MEQ/1,000 ML BAG IV SCH ×2 (04:45→10:15)
[2021-10-02 05:02] LABS: C-Reactive Protein 0.3 mg/dL (0.00-1.30)
[2021-10-02] MEDS ORDERED: SODIUM PHOSPHATE 15 MMOL in SODIUM CHLORIDE 0.9% 250ML 250 ML IV ONE (05:44)
[2021-10-02] MEDS ORDERED: IPRATROPIUM/ALBUTEROL SULFATE 3 ML AMPUL.NEB IH SCH (08:00)
[2021-10-02 08:32] LABS: BUN/Creatinine Ratio 12; Blood Urea Nitrogen 13 mg/dL (9-20); Calcium 9.1 mg/dL (8.4-10.2); Hemolysis Index 21
[2021-10-02] MEDS: HEPARIN 5,000 UNIT/1 ML VIAL SUB-Q SCH ×2 (09:03→21:57)
[2021-10-02] MEDS ORDERED: FAMOTIDINE 20 MG/2 ML INJ IV SCH (10:00)
[2021-10-02] MEDS: levETIRAcetam 500 MG in DEXTROSE 5% IN WATER 100 ML IV SCH ×2 (10:09→21:58)
[2021-10-02] MEDS ORDERED: LACTATED RINGERS 1,000 ML IV ONE (10:45)
[2021-10-02] MEDS: INSULIN LISPRO 100 UNIT/ML SUB-Q SCH ×3 (11:26→21:57)
[2021-10-02] MEDS ORDERED: INSULIN GLARGINE 100 UNITS/ML SUB-Q SCH (11:45)
[2021-10-02] MEDS ORDERED: HALOPERIDOL LACTATE 5 MG/1 ML INJ IV SCH (12:00)
--- NOTE | 2021-10-02 12:34 | Event Note ---
Date: 10/02/21 This is is a 59-year-old male with DM and HTN who presented to the ED via EMS after he had a witnessed seizure at home abd had 3 more with EMS while on route and given Ativan 2 mg. In the emergency department patient arrived in a postictal state with response to painful stimuli. In the emergency department patient had another witnessed seizure and was given Ativan and started on Keppra and Versed. Work-up in the emergency department included CT head without any acute abnormalities and lab work consistent with DKA. Patient was admitted to the hospital service with DKA and insulin drip with consults to neurology and CCM. Hospital course to date: 10/02: Overnight patient was started on a Precedex drip which was titrated off this morning. EEG and MRI brain ordered. Anion gap closed and transitioned to long-acting insulin and Lantus. Given haldol x1 for agitation. CC diet ordered. This is a 59-year-old male with DM and HTN admitted with DKA and seizures Neuro: New onset seizures -Neurology consulted, appreciate recommendations -Initial head CT on admit with no acute findings -S/p Precedex drip -Haldol x1 for agitation -Bilateral wrist restraints in place for patient safety -MRI brain pending -EEG pending -Aspiration/seizure precautions -Reorientation as needed -Maintain sleep-wake cycle -aspiration/seizure precautions -prn ativan -As needed analgesia Cardiac: h/o HTN -Patient states that he has hypertension however no medications found in external med history -Patient is borderline hypotensive -1 L LR bolus -Blood pressure monitoring per protocol Respiratory: Acute hypoxic respiratory failure -CCM consulted, appreciate recommendations -Supplemental oxygen as needed -Pulmonary hygiene -SPO2 monitoring GI: No acute distress -24 hours not recorded -PPI -CC diet -BR: Colace : Acute kidney injury likely secondary to vasomotor nephropathy (resolved), high anion gap metabolic acidosis (resolved), hypochloremia, hypercalcemia (resolved), hypophosphatemia -Admit with chloride 90.1, CO2 8, creatinine 1.6, calcium 10.7 -Strict intake and output -Renally dose medications -Avoid nephrotoxic medications -Phosphate repleted overnight -Trend BMP, and phosphate ID: NAD -f/u blood culture -Monitor WBC and temperature curve Endo: S/p HHNK, h/o DM -S/p insulin drip -Avoid hypoglycemia -SSI -Accu-Cheks AC at bedtime -Long-acting insulin, titrate as needed -CC diet -Hemoglobin A1c 3.1 -We will repeat in the a.m. Heme: Leukocytosis -Trend CBC -Transfuse hemoglobin less than 7 -Monitor for signs of bleeding -Heparin subcu -SCDs to BLE while in bed The high probability of a clinically significant, sudden or life threatening deterioration of the [endo/neuro] system(s) required my full and direct attentio n, intervention and personal management. The aggregate critical care time was [] minutes. This time is in addition to time spent performing reported procedures but includes the following: [x] Data Review and interpretation [x] Patient assessment and monitoring of vital signs [x] Documentation [x] Medication orders and management
[2021-10-02] MEDS ORDERED: LORazepam 2 MG/ML VIAL IV PRN (15:00)
[2021-10-02] MEDS ORDERED: HALOPERIDOL LACTATE 5 MG/1 ML INJ IV ONE (16:00)
--- NOTE | 2021-10-02 17:19 | Magnetic Resonance Report ---
MRI BRAIN 10/02/2021 INDICATION / CLINICAL INFORMATION: seizure. Technologist note:16ml of Clariscan given. Patient AMS, Haldol was given by nurse prior to exam for a nxiety. Meds given where ineffective; patient pulled himself out of scanner and moved constantly. Be st possible images turned in TECHNIQUE: Multiplanar, multisequence MR images of the brain were obtained. COMPARISON: CT brain 10/02/2021 FINDINGS: BRAIN / INTRACRANIAL CONTENTS: Unenhanced and enhanced MR images of the brain were obtained. Patient motion artifact is present to varying degree at all imaging sequences,. Overall image quality is diagnostic. There is no evidence of acute abnormality. Ventricles and sulci are normal in size and shape. There i s no evidence of hemorrhage or mass. CSF space over the left cerebral convexities is slightly prominent, as present on the earlier CT. The re is no evidence of hemorrhage. The appearance of a nonhemorrhagic subdural hygroma, with a maximum thickness of approximately 6 mm. This is of unlikely acute clinical significance. Postcontrast images demonstrate no abnormal contrast enhancement. EXTRACRANIAL: Unremarkable CRANIOCERVICAL JUNCTION: No significant abnormality. VASCULAR FLOW-VOIDS: No significant abnormality. IMPRESSION: No acute abnormality. 5 mm left sided hygroma of unlikely acute clinical significance. Signer Name: Migue Zapien MD Signed: 10/02/2021 5:15 PM Workstation Name: [id number]
[2021-10-03 04:35] LABS: Basophils # (Auto) 0.1 K/mm3 (0.0-0.1); Basophils % (Auto) 0.8 % (0.0-1.8); Eosinophils % (Auto) 0.1 % (0.0-4.3); Hematocrit 42.6 % (35.5-45.6); Hemoglobin 14.1 gm/dl (11.8-15.2); Lymphocytes # (Auto) 1.4 K/mm3 (1.2-5.4); Lymphocytes % (Auto) 17.1 % (13.4-35.0); Mean Corpuscular HGB Conc 33 % (32-34); Mean Corpuscular Volume 97 fl (84-94); Monocytes # (Auto) 0.5 K/mm3 (0.0-0.8); Monocytes % (Auto) 6.1 % (0.0-7.3); Platelet Count 140 K/mm3 (140-440); Red Blood Count 4.41 M/mm3 (3.65-5.03); Red Cell Distribution Width 12.7 % (13.2-15.2)
[2021-10-03 04:57] LABS: BUN/Creatinine Ratio 8; Blood Urea Nitrogen 7 mg/dL (9-20); Calcium 8.8 mg/dL (8.4-10.2); Hemolysis Index 15
[2021-10-03] MEDS ORDERED: LACTATED RINGERS 1,000 ML IV ONE (07:35)
--- NOTE | 2021-10-03 09:25 | Consultation ---
History of Present Illness - Reason for Consult Consult date: 10/03/21 DKA, Seizure - History of Present Illness 51 y/o male admitted with DKA and altered mental status. Per report patient had witnessed multiple seizures in route and on way to ED. aborted with ativan. Was not intubated. In the ICU now, confused but knows his name and who the president is. Per labs A1c is 3.1. Anion Gap has closed and off insulin drip. Required haldol for agitation but is still confused today. Now having diarrhea as well. Remainder of the review is negative. Initial head CT was negative as well. Past History Past Medical History: diabetes, seizures Past Surgical History: No surgical history Social history: other (Unknown) Family history: diabetes Medications and Allergies Allergies Allergy/AdvReac Type Severity Reaction Status Date / Time No Known Allergies Allergy Verified 10/01/21 23:13 Home Medications Medication Instructions Recorded Confirmed Last Taken Type Ibuprofen [Motrin] 800 mg PO Q8HR PRN #30 tablet 12/20/19 Unknown Rx methOCARBAMOL [Robaxin TAB] 750 mg PO Q8H PRN #24 tablet 12/20/19 Unknown Rx Active Meds: Active Medications Acetaminophen (Acetaminophen 325 Mg Tab) 650 mg PO Q4H PRN PRN Reason: Pain MILD(1-3)/Fever >100.5/MONK Albuterol (Albuterol 2.5 Mg/3 Ml Nebu) 2.5 mg IH Q3HRT PRN PRN Reason: Shortness Of Breath Famotidine (Famotidine 20 Mg Tab) 20 mg PO QDAY BAYLEE Heparin Sodium (Porcine) (Heparin 5,000 Unit/1 Ml Vial) 5,000 unit SUB-Q Q12HR BAYLEE Last Admin: 10/02/21 21:57 Dose: 5,000 unit Levetiracetam 500 mg/ Dextrose 105 mls @ 400 mls/hr IV Q12HR BAYLEE Last Admin: 10/02/21 21:58 Dose: 400 mls/hr Dexmedetomidine HCl 400 mcg/ (Sodium Chloride) 104 mls @ 5.071 mls/hr IV TITRATE BAYLEE; Protocol Last Titration: 10/03/21 06:02 Dose: 0.1 mcg/kg/hr, 2.536 mls/hr Insulin Glargine (Insulin Glargine 100 Units/Ml) 10 units SUB-Q QHS BAYLEE Insulin Human Lispro (Insulin Lispro 100 Unit/Ml) 0 unit SUB-Q ACHS BAYLEE; P rotocol Last Admin: 10/02/21 21:57 Dose: 2 unit Lorazepam (Lorazepam 2 Mg/Ml Vial) 2 mg IV Q4H PRN PRN Reason: Seizures Ondansetron HCl (Ondansetron 4 Mg/2 Ml Inj) 4 mg IV Q8H PRN PRN Reason: Nausea And Vomiting Quetiapine Fumarate (Quetiapine 25 Mg Tab) 50 mg PO QHS BAYLEE Quetiapine Fumarate (Quetiapine 25 Mg Tab) 25 mg PO QDAY BAYLEE Sodium Chloride (Sodium Chloride 0.9% 10 Ml Flush Syringe) 10 ml IV BID BAYLEE Last Admin: 10/02/21 21:58 Dose: 10 ml Sodium Chloride (Sodium Chloride 0.9% 10 Ml Flush Syringe) 10 ml IV PRN PRN PRN Reason: LINE FLUSH Review of Systems ROS unobtainable: due to mental status Exam - Constitutional Vitals: Temp Pulse Resp BP Pulse Ox 98.9 F 89 16 91/57 97 10/03/21 04:04 10/03/21 05:00 10/03/21 06:02 10/03/21 06:02 10/03/21 08:08 General appearance: Present: mild distress, well-nourished - EENT Eyes: Present: PERRL, EOM intact ENT: hearing intact - Neck Neck: Present: supple, normal ROM - Respiratory Respiratory effort: normal Respiratory: bilateral: CTA - Cardiovascular Rhythm: regular Heart Sounds: Present: S1 & S2 Results - Labs CBC & Chem 7: 10/03/21 04:18 10/03/21 04:18 Labs: Abnormal lab results 10/02/21 10/02/21 10/02/21 Range/Units 04:23 05:14 07:41 MCV (84-94) fl RDW (13.2-15.2) % Seg Neutrophils % (40.0-70.0) % Sodium (137-145) mmol/L Carbon Dioxide (22-30) mmol/L BUN (9-20) mg/dL Glucose (75-100) mg/dL POC Glucose 136 H 185 H 146 H (70-105) mg/dL Hemoglobin A1c (4-6) % 10/02/21 10/02/2122 Range/Units 08:58 10:04 18:05 MCV (84-94) fl RDW (13.2-15.2) % Seg Neutrophils % (40.0-70.0) % Sodium (137-145) mmol/L Carbon Dioxide (22-30) mmol/L BUN (9-20) mg/dL Glucose (75-100) mg/dL POC Glucose 170 H 170 H 180 H (70-105) mg/dL Hemoglobin A1c (4-6) % 10/02/21 10/03/21 10/03/21 Range/Units Unknown 04:18 04:18 MCV 97 H (84-94) fl RDW 12.7 L (13.2-15.2) % Seg Neutrophils % 75.9 H (40.0-70.0) % Sodium 136 L (137-145) mmol/L Carbon Dioxide 21 L (22-30) mmol/L BUN 7 L (9-20) mg/dL Glucose 290 H (75-100) mg/dL POC Glucose (70-105) mg/dL Hemoglobin A1c 3.1 L (4-6) % - Imaging and Cardiology Chest x-ray: image reviewed CT Scan - head: report reviewed Assessment and Plan 51 y/o male with known diabetes admitted with DKA and altered mental status. 1. Insulin therapy and hold on metformin as it can cause diarrhea as well 2. Agree with isolation and COVID swab 3. Mental state is slowly improving
[2021-10-03] MEDS: INSULIN LISPRO 100 UNIT/ML SUB-Q SCH ×4 (09:42→23:11)
[2021-10-03] MEDS: HEPARIN 5,000 UNIT/1 ML VIAL SUB-Q SCH ×2 (09:42→23:18)
[2021-10-03] MEDS: FAMOTIDINE 20 MG TAB PO SCH (09:42)
[2021-10-03] MEDS: levETIRAcetam 500 MG in DEXTROSE 5% IN WATER 100 ML IV SCH ×2 (09:43→23:10)
[2021-10-03] MEDS: QUEtiapine 25 MG TAB PO SCH (10:21)
[2021-10-03] MEDS ORDERED: INSULIN GLARGINE 100 UNITS/ML SUB-Q ONE (11:00)
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
--- NOTE | 2021-10-03 18:12 | Electrocardiograph Report ---
[facility] Test Date: 2021-10-02 Test Time: 00:20:20 Pat Name: BALTAZAR FLEMING Department: Room: A255 1 Gender: M [employer]ist: LAMBERT : 1970 Requested By: XAVIER RODRIGUEZ Order Number: [id number] Reading MD: Doris Dos Santos Measurements Intervals [place] Rate: 127 P: 55 GA: 143 QRS: 41 QRSD: 78 T: 57 QT: 321 QTc: 467 Interpretive Statements Sinus tachycardia Probable left atrial enlargement No previous ECG available for comparison Electronically Signed On 10-03-2021 18:12:05 EDT by Doris Dos Santos
[2021-10-03] MEDS ORDERED: INSULIN GLARGINE 100 UNITS/ML SUB-Q SCH (22:00)
[2021-10-03] MEDS ORDERED: QUEtiapine 25 MG TAB PO SCH (22:00)
[2021-10-04 07:54] LABS: BUN/Creatinine Ratio 13; Blood Urea Nitrogen 10 mg/dL (9-20); Calcium 9.1 mg/dL (8.4-10.2); Hemolysis Index 5
--- NOTE | 2021-10-04 08:15 | Consultation ---
History of Present Illness Consult date: 10/04/21 Reason for Consult: Seizure,DKA History of present illness: Seizure History of present illness: 51 years male with past medical history of diabetes was brought to the emergency room because of altered mental status and seizure at home. Patient had seizure at home witnessed by family. Patient had 3 seizures witnessed by EMS and given Ativan 2mg IV. Seizure noted upon arrival to ED. Patient arrived her postictal with repose to painful stimuli no falls no head injury . Initial CT scan of the head shows no acute intracranial abnormality. But patient found to have DKA. Patient blood glucose is 608, bicarb is 8 anion gap is 46. We are going to admit the patient to the ICU put the patient on insulin drip IV fluid Keppra will consult critical care as well as neurology for evaluation pt. is doing well today denied Hx of seizure , denied family hx of seizure , or head trauma,denied recreational drugs intake or alcohol, His A1C#3.1 MRI brain with Gd is remarkable for left sided Hygroma 5 mm , EEG is pending he is started on Keppra 500 mg bid he drives Past History Past Medical History: diabetes, seizures Past Surgical History: No surgical history Social history: other (Unknown) Family history: diabetes Medications and Allergies Allergies Allergy/AdvReac Type Severity Reaction Status Date / Time No Known Allergies Allergy Verified 10/01/21 23:13 Home Medications Medication Instructions Recorded Confirmed Last Taken Type Ibuprofen [Motrin] 800 mg PO Q8HR PRN #30 tablet 12/20/19 Unknown Rx methOCARBAMOL [Robaxin TAB] 750 mg PO Q8H PRN #24 tablet 12/20/19 Unknown Rx Active Meds: Active Medications MIDAZOLAM/NS Drip 100mg/100ml (Midazolam/Ns Drip 100mg/100ml) 100 mg in 100 mls @ 1 mls/hr IV TITR BAYLEE; Protocol Insulin Human Regular 100 (units/ Sodium Chloride) 100 mls @ 1 mls/hr IV TITR [facility]E; Protocol Last Titration: 10/02/21 03:00 Dose: 4 units/hr, 4 mls/hr Midazolam HCl (Midazolam 2 Mg/2 Ml Inj) 2 mg IV Q10MIN PRN PRN Reason: Sedation Review of Systems All systems: negative Constitutional: fatigue, lethargy (Seizure), other Past History Past Medical History: diabetes, seizures Past Surgical History: No surgical history Social history: other (Unknown) Family history: diabetes Medications and Allergies Allergies Allergy/AdvReac Type Severity Reaction Status Date / Time No Known Allergies Allergy Verified 10/01/21 23:13 Home Medications Medication Instructions Recorded Confirmed Last Taken Type Ibuprofen [Motrin] 800 mg PO Q8HR PRN #30 tablet 12/20/19 10/03/21 Unknown Rx methOCARBAMOL [Robaxin TAB] 750 mg PO Q8H PRN #24 tablet 12/20/19 10/03/21 Unknown Rx Active Meds: Active Medications Acetaminophen (Acetaminophen 325 Mg Tab) 650 mg PO Q4H PRN PRN Reason: Pain MILD(1-3)/Fever >100.5/MONK Last Admin: 10/03/21 19:47 Dose: 650 mg Albuterol (Albuterol 2.5 Mg/3 Ml Nebu) 2.5 mg IH Q3HRT PRN PRN Reason: Shortness Of Breath Famotidine (Famotidine 20 Mg Tab) 20 mg PO QDAY [facility] Last Admin: 10/03/21 09:42 Dose: 20 mg Heparin Sodium (Porcine) (Heparin 5,000 Unit/1 Ml Vial) 5,000 unit SUB-Q Q12HR [facility] Last Admin: 10/03/21 23:18 Dose: 5,000 unit Levetiracetam 500 mg/ Dextrose 105 mls @ 400 mls/hr IV Q12HR [facility] Last Admin: 10/03/21 23:10 Dose: 400 mls/hr Insulin Glargine (Insulin Glargine 100 Units/Ml) 10 units SUB-Q QHS [facility] Last Admin: 10/03/21 23:11 Dose: 10 units Insulin Human Lispro (Insulin Lispro 100 Unit/Ml) 0 unit SUB-Q [facility]; Protocol Last Admin: 10/03/21 23:11 Dose: 6 unit Lorazepam (Lorazepam 2 Mg/Ml Vial) 2 mg IV Q4H PRN PRN Reason: Seizures Ondansetron HCl (Ondansetron 4 Mg/2 Ml Inj) 4 mg IV Q8H PRN PRN Reason: Nausea And Vomiting Quetiapine Fumarate (Quetiapine 25 Mg Tab) 50 mg PO QHS [facility] Last Admin: 10/03/21 23:18 Dose: 50 mg Quetiapine Fumarate (Quetiapine 25 Mg Tab) 25 mg PO QDAY [facility] Last Admin: 10/03/21 10:21 Dose: 25 mg Sodium Chloride (Sodium Chloride 0.9% 10 Ml Flush Syringe) 10 ml IV BID [facility] Last Admin: 10/03/21 23:12 Dose: 10 ml Sodium Chloride (Sodium Chloride 0.9% 10 Ml Flush Syringe) 10 ml IV PRN PRN PRN Reason: LINE FLUSH Physical Examination - Vital Signs Vital Signs: Vital Signs Temp Pulse Resp BP Pulse Ox 98 F 106 H 18 158/91 100 10/01/21 22:48 10/01/21 22:48 10/01/21 22:48 10/01/21 22:48 10/01/21 22:48 - Constitutional General appearance: comfortable - EENT EENT: Present: PERRL, mucous membranes moist - Respiratory Respiratory: Present: lungs clear, rhonchi - Cardiovascular Cardiovascular: Present: regular rate, normal S1, normal S2 Extremities: Present: no peripheral edema bilatateraly, no clubbing, cyanosis - Gastrointestinal Gastrointestinal: Present: normoactive bowel sounds - Integumentary Integumentary: Present: normal - Neurologic Cranial nerve examination: PERRL, EOMI, intact Speech examination: intact Sensorimotor examination: intact Detailed motor examination: grossly full strength in - Psychiatric Psychiatric: Present: other (he is alert orientedX3) Results - Laboratory Findings CBC and BMP: 10/03/21 04:18 10/04/21 06:41 Abnormal Lab Findings: Abnormal Labs 10/01/21 10/01/21 10/01/21 23:10 23:10 23:10 WBC 13.3 H RBC 5.28 H Hgb 16.9 H Hct 55.1 H MCV 104 H MCHC 31 L RDW Seg Neutrophils % Lymphocytes % (Manual) 39.0 H Monocytes % (Manual) 9.0 H Monocytes # (Manual) 1.2 H ABG pH ABG pO2 ABG HCO3 ABG Base Excess Oxyhemoglobin Sodium Potassium Chloride 90.1 L Carbon Dioxide 8 L* BUN Creatinine 1.6 H Glucose 608 H* POC Glucose Hemoglobin A1c Calcium 10.7 H Phosphorus Magnesium Total Creatine Kinase 234 H Total Protein 9.1 H Albumin 5.2 H 10/02/21 10/02/21 10/02/21 00:28 00:28 00:30 WBC RBC Hgb Hct MCV MCHC RDW Seg Neutrophils % Lymphocytes % (Manual) Monocytes % (Manual) Monocytes # (Manual) ABG pH 7.145 L* ABG pO2 93.5 H ABG HCO3 13.3 L ABG Base Excess -15.0 L Oxyhemoglobin 93.0 L Sodium 135 L Potassium 5.2 H D Chloride 92.2 L Carbon Dioxide 13 L BUN Creatinine 1.6 H Glucose 529 H* POC Glucose Hemoglobin A1c Calcium Phosphorus 6.00 H Magnesium 2.70 H Total Creatine Kinase Total Protein Albumin 10/02/21 10/02/21 10/02/21 00:40 02:05 03:51 WBC RBC Hgb Hct MCV MCHC RDW Seg Neutrophils % Lymphocytes % (Manual) Monocytes % (Manual) Monocytes # (Manual) ABG pH ABG pO2 ABG HCO3 ABG Base Excess Oxyhemoglobin Sodium 136 L Potassium Chloride Carbon Dioxide 16 L BUN Creatinine Glucose 352 H POC Glucose 495 H 149 H Hemoglobin A1c Calcium Phosphorus Magnesium Total Creatine Kinase Total Protein Albumin 10/02/21 10/02/21 10/02/21 04:01 04:23 05:14 WBC RBC Hgb Hct MCV MCHC RDW Seg Neutrophils % Lymphocytes % (Manual) Monocytes % (Manual) Monocytes # (Manual) ABG pH ABG pO2 ABG HCO3 ABG Base Excess Oxyhemoglobin Sodium Potassium Chloride Carbon Dioxide 21 L BUN Creatinine Glucose 161 H POC Glucose 136 H 185 H Hemoglobin A1c Calcium Phosphorus 1.50 L D Magnesium 2.40 H Total Creatine Kinase Total Protein Albumin 10/02/21 10/02/21 10/02/21 07:41 07:58 08:58 WBC RBC Hgb Hct MCV MCHC RDW Seg Neutrophils % Lymphocytes % (Manual) Monocytes % (Manual) Monocytes # (Manual) ABG pH ABG pO2 ABG HCO3 ABG Base Excess Oxyhemoglobin Sodium Potassium Chloride 109.6 H Carbon Dioxide 21 L BUN Creatinine Glucose 164 H POC Glucose 146 H 170 H Hemoglobin A1c Calcium Phosphorus Magnesium Total Creatine Kinase Total Protein Albumin 10/02/21 10/02/21 10/02/21 10:04 18:05 Unknown WBC RBC Hgb Hct MCV MCHC RDW Seg Neutrophils % Lymphocytes % (Manual) Monocytes % (Manual) Monocytes # (Manual) ABG pH ABG pO2 ABG HCO3 ABG Base Excess Oxyhemoglobin Sodium Potassium Chloride Carbon Dioxide BUN Creatinine Glucose POC Glucose 170 H 180 H Hemoglobin A1c 3.1 L Calcium Phosphorus Magnesium Total Creatine Kinase Total Protein Albumin 10/03/21 10/03/21 10/03/21 04:18 04:18 08:36 WBC RBC Hgb Hct MCV 97 H MCHC RDW 12.7 L Seg Neutrophils % 75.9 H Lymphocytes % (Manual) Monocytes % (Manual) Monocytes # (Manual) ABG pH ABG pO2 ABG HCO3 ABG Base Excess Oxyhemoglobin Sodium 136 L Potassium Chloride Carbon Dioxide 21 L BUN 7 L Creatinine Glucose 290 H POC Glucose 380 H Hemoglobin A1c Calcium Phosphorus Magnesium Total Creatine Kinase Total Protein Albumin 10/03/21 10/04/21 21:23 06:41 WBC RBC Hgb Hct MCV MCHC RDW Seg Neutrophils % Lymphocytes % (Manual) Monocytes % (Manual) Monocytes # (Manual) ABG pH ABG pO2 ABG HCO3 ABG Base Excess Oxyhemoglobin Sodium Potassium Chloride Carbon Dioxide BUN Creatinine Glucose 230 H POC Glucose 307 H Hemoglobin A1c Calcium Phosphorus Magnesium Total Creatine Kinase Total Protein Albumin Assessment and Plan - Imaging and Cardiology Chest x-ray: report reviewed CT Scan - head: report reviewed Assessment and Plan 51 years male with past medical history of diabetes was brought to the emergency room because of altered mental status and seizure at home. Patient had seizure at home witnessed by family. Patient had 3 seizures witnessed by EMS and given Ativan 2mg IV. Seizure noted upon arrival to ED. - Patient Problems # New onset seizure multiple witnessed -R/O Status epilepticus -No hx of seizure -He is alert oriented today -EEG is pending -Treated with Ativan and Keppra 500 mg bid -Normal neurological exam -Incidental finding of left sided Hygroma 5 mm ? trigger seizure{ noted on MRI brain w/wo Gd} -No hx of head trauma or fall -Seizure precaution -- no driving -Maintain Keppra 500 mg bid # DKA (diabetic ketoacidosis) -Admit the patient to the ICU. - NPO. Half-normal saline at the rate of 125 cc/h. - Insulin drip as per protocol. -We do the serial BMP. # Acute encephalopathy - Mostly multi factorial -today he is alert oriented # Acidosis -Most likely secondary to DKA. -Half-normal saline at the rate of 125 cc/h. - Insulin drip as per protocol. # DVT prophylaxis -Heparin 5000 units subcu every 12 hours for DVT prophylaxis. - Pepcid 20 mg IV every 12 hours for GI prophylaxis. - Patient is a full code will follow findings are D/W pt.
[2021-10-04] MEDS: INSULIN LISPRO 100 UNIT/ML SUB-Q SCH ×3 (08:38→16:56)
[2021-10-04] MEDS: HEPARIN 5,000 UNIT/1 ML VIAL SUB-Q SCH (10:36)
[2021-10-04] MEDS: levETIRAcetam 500 MG in DEXTROSE 5% IN WATER 100 ML IV SCH (11:35)
[2021-10-04] MEDS: QUEtiapine 25 MG TAB PO SCH (12:37)
[2021-10-04] MEDS: FAMOTIDINE 20 MG TAB PO SCH (12:37)
[2021-10-04 13:06] VITALS: BP 123/73
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
[2021-10-04] MEDS ORDERED: levETIRAcetam 500 MG TAB PO ONE (15:00)
[2021-10-04] MEDS ORDERED: INSULIN GLARGINE 100 UNITS/ML SUB-Q SCH (15:00)
[2021-10-04] MEDS ORDERED: levETIRAcetam 500 MG TAB PO SCH (22:00)
== END 2021-10-04 19:15 | disposition home or self-care (01) | DRG 637 ==
LOC: ED 22:27 → CC1 10-02 03:00 → 3A 10-03 21:08
PROVIDERS: ADMIT Hospitalist; ATTEND Internal Medicine
PROC: 4A033R1 Measurement of Arterial Saturation, Peripheral, Percutaneous Approach (ICD-10-PCS; principal; 2021-10-02)
DX: E11.00 Type 2 diabetes mellitus with hyperosmolarity without nonketotic hyperglycemic-hyperosmolar coma (NKHHC) (principal); N17.0 Acute kidney failure with tubular necrosis; J96.01 Acute respiratory failure with hypoxia; G93.41 Metabolic encephalopathy; G40.901 Epilepsy, unspecified, not intractable, with status epilepticus; E11.65 Type 2 diabetes mellitus with hyperglycemia; E83.52 Hypercalcemia; E87.8 Other disorders of electrolyte and fluid balance, not elsewhere classified; Z20.822 Contact with and (suspected) exposure to COVID-19; E83.39 Other disorders of phosphorus metabolism; Z83.3 Family history of diabetes mellitus
CPT/HCPCS: 36415; 70450; 70553; 71045; 80048; 80053; 80307; 80320; 81001; 82550; 82803; 82962; 83036; 83735; 83880; 84100; 85007; 85025; 86140; 93005; 94640; 94760; G0378; J3480; J3490; J7060; J7121; Q9967; A9575; G0480; J1630; J1644; J1815; J1953; J2060; J2250; J7030; J7050; J7120; U0003